=== PATIENT | male | born 1990 | race Hispanic/Latino ===

== ENCOUNTER 2024-01-26 03:18 | Emergency (ER) | payer BC ==
[~2024-01-26] VITALS: Ht 170.2 cm; Wt 97.5 kg
[2024-01-26 03:19] VITALS: BP 136/85; PULSE 77; RESP 18; TEMP 98.6; O2SAT 95
[2024-01-26] MEDS ORDERED: WATER 20 ML ONE (03:39)
[2024-01-26] MEDS ORDERED: PEPCID ONE (03:39)
[2024-01-26] MEDS ORDERED: SOLU-MEDROL ONE (03:39)
[2024-01-26] MEDS ORDERED: BENADRYL ONE (03:39)
[2024-01-26] MEDS: SOLU-MEDROL IM STA (03:42)
[2024-01-26] MEDS: BENADRYL IM STA (03:42)
[2024-01-26] MEDS: PEPCID PO STA (03:42)
[2024-01-26 04:30] VITALS: BP 115/43; PULSE 71; RESP 18; TEMP 98.6; O2SAT 95
[2024-01-26] MEDS ORDERED: PRED20TA PO (04:38)
[2024-01-26] MEDS ORDERED: GENT5DRO22 RIGHT EYE (04:38)
[2024-01-26] MEDS ORDERED: ERYTHROMYCIN ONE (04:45)
[2024-01-26] MEDS: ERYTHROMYCIN RIGHT EYE ONE (04:46)
== END 2024-01-26 04:48 | disposition home or self-care (01) ==
LOC: ER 03:18
DX: L23.9 Allergic contact dermatitis, unspecified cause (principal); H10.9 Unspecified conjunctivitis; H05.221 Edema of right orbit
CPT/HCPCS: 99284; 96372 ×2; J1200; J2919; A4216; J2930